=== PATIENT | male | born 1935 | race Caucasian/White ===

== ENCOUNTER 2017-12-26 10:14 | Day surgery (SDC) | payer OTHER ==
[2017-12-26] MEDS ORDERED: LIDOCAINE 1% 2 ML INJ ID PRN (10:38)
[2017-12-26] MEDS ORDERED: LR 1,000 ML IV ONE (10:38)
[2017-12-26] MEDS ORDERED: PROPOFOL/EMULSION 500 MG/50 ML BOTTLE IV ONE (12:06)
--- NOTE | 2017-12-26 12:08 | PDANEPAE ---
ANE History of Present Illness Patient presents for EGD ANE Past Medical History - Cardiovascular History Hx Hypertension: Yes Hx Arrhythmias: No Hx Chest Pain: No Hx Coronary Artery / Peripheral Vascular Disease: No Hx CHF / Valvular Disease: No Hx Palpitations: No Cardiovascular History Comment: CARDIAC STENT 2006. [place] 2014. GABGX3 2014 POST SURG INCISION NOT HEALING AND CODED - Pulmonary History Hx COPD: No Hx Asthma/Reactive Airway Disease: No Hx Recent Upper Respiratory Infection: No Hx Oxygen in Use at Home: No Hx Sleep Apnea: No Sleep Apnea Screening Result - Last Documented: Positive - Neurologic History Hx Cerebrovascular Accident: Yes Hx Seizures: No Hx Dementia: No Neurologic History Comment: 2014 POST SURG STROKE WITH RESIDUAL WEAKNESS ON LT SIDE - Endocrine History Hx Diabetes: Yes Endocrine History Comment: NIDDM. HYPOTHYROID - Renal History Hx Renal Disorders: No - Liver History Hx Hepatic Disorders: No - Neurological & Psychiatric Hx Hx Neurological and Psychiatric Disorders: No - Cancer History Hx Cancer: No - Congenital Disorder History Hx Congenital Disorders: No - GI History Hx Gastrointestinal Disorders: Yes Gastrointestinal History Comment: DIFFICULTY WITH SWALLOWING. WAS SEEN BY [facility] ED AND HAD TO HAVE IT PUSHED OUT 09/2017 - Other Health History Other Health History: RT BELOW LT SHLDR BLADE AREA OF DISCOMFORT. ANEMIA. FULL DENTURES. BRUISES EASILY - Surgical History Prior Surgeries: GABGX3 02/2015. ZENIA STRABISMUS. TONSILLECTOMY. LT KNEE REPAIR. THORACIC FUSION. RT KNEE SCOPE. LT TOTAL HIP. ZENIA CATARACT ANE Review of Systems Review of Systems: - Exercise capacity METS (RN): 3 METS ANE Patient History - Allergies Allergies/Adverse Reactions: codeine Allergy (Verified 12/26/17 11:13) GI Penicillins Allergy (Verified 12/26/17 11:13) MENTAL FUZZINESS - Home Medications Home medications: home medication list seen and reviewed Home Medications: Aspirin DAILY 11/28/17 [Last Taken 12/20/17] Levothyroxine DAILY 11/28/17 [Last Taken 12/20/17] Lisinopril-Hctz 10-12.5 mg Tab DAILY 11/28/17 [Last Taken 12/20/17] Metformin HCl DAILY 11/28/17 [Last Taken 12/20/17] Metoprolol Tartrate DAILY 11/28/17 [Last Taken 12/26/17] Plavix DAILY 11/28/17 [Last Taken 12/20/16] Calcium 12/26/17 [Last Taken 12/20/17] Iron 35 mg 12/26/17 [Last Taken 12/20/17] Oxycodone HCl 12/26/17 [Last Taken 12/20/17] - NPO status NPO Status: no food or drink >8 hours NPO Since - Liquids (Date): 12/26/17 NPO Since - Liquids (Time): 09:00 NPO Since - Solids (Date): 12/25/17 NPO Since - Solids (Time): 18:00 - Smoking Hx Smoking Status: Former smoker ANE Labs/Vital Signs - Vital Signs Blood Pressure: 143/76 Heart Rate: 66 Respiratory Rate: 18 O2 Sat (%): 93 Height: 167.64 cm Weight: 64.864 kg ANE Physical Exam - Airway Neck exam: decreased ROM Mouth exam: dentures - Pulmonary Pulmonary: expiratory wheeze - Cardiovascular Cardiovascular: regular rate and rhythym - ASA Status ASA Status: III ANE Anesthesia Plan Anesthesia Plan: GA with mask (rba discussed)
--- NOTE | 2017-12-26 12:24 | PDGENHP ---
History & Physical Chief Complaint: Dysphagia. Recent foreign body esophageal food impaction History of Present Illness: Dysphagia. Food bolus impaction required EGD for removal Pertinent Past, Social, Family History: CAD. Dysphagia. GERD. No Tobacco. No Etoh. No FH esophageal cancer or GERD. Relevant Physical Exam: NAD. CTA B/L. RRR. Occasional ectopy. AVINASH 05/30. Soft abdomen. NABS. NT/ND Cardiorespiratory Assessment: ASA III. EGD with dilation. MAC planned. Plavix and ASA held for 5 days.
--- NOTE | 2017-12-26 12:43 | GIREPORT ---
[facility] Surgical Services - Endoscopy Department Patient Name: Cong Vidal Procedure Date: 12/26/2017 12:18 PM Patient Type: Outpatient Attending MD/ ER Physician: Cong Canales MD Procedure: Upper GI endoscopy Indications: Dysphagia, Abnormal cine-esophagram Providers: Cong Canales MD Medicines: Propofol per Anesthesia Complications: No immediate complications. Description of Procedure: After obtaining informed consent, the endoscope was passed under direct vision. Throughout the procedure, the patient's blood pressure, pulse, and oxygen saturations were monitored continuously. The Endoscope was intro duced through the mouth, and advanced to the second part of duodenum. The [facility] er GI endoscopy was accomplished without difficulty. The patient tolerated th e procedure well. Findings: One benign-appearing, intrinsic stenosis was found 36 cm from the incis ors. This stenosis was moderately severe and measured 1 cm (inner diameter) x 1 cm (in length). The stenosis was traversed. A TTS dilator was passed th rough the scope. Dilation with a 15-16.5-18 mm x 5.5 cm CRE balloon dilator w as performed to 18 mm. The stomach was normal. The examined duodenum was normal. Estimated Blood Loss: Estimated blood loss was minimal. Post Op Diagnosis: - Benign-appearing esophageal stenosis. Dilated. - Normal stomach. - Normal examined duodenum. - No specimens collected. Recommendation: - Soft diet for 3 days. - Use Protonix (pantoprazole) 40 mg PO daily indefinitely. - Resume aspirin today and Plavix (clopidogrel) tomorrow at prior doses . Refer to referring physician for further adjustment of therapy. - Return to GI office in 3 months. - Patient has a contact number available for emergencies. The signs and symptoms of potential delayed complications were discussed with the pat ient. Return to normal activities tomorrow. Written discharge instructions we re provided to the patient. - Thank you for allowing me to be involved in the care of your patient. Attending Participation: I personally performed the entire procedure without the assistance of a fellow, resident or surg ical veterinarian assistant. Cong Canales MD Cong Canales MD 12/26/2017 12:42:23 PM This report has been signed electronicallyDavid MD Parker Number of Addenda: 0 Note Initiated On: 12/26/2017 12:18 PM [email or web address]
[2017-12-26] MEDS ORDERED: NALOXONE HCL 0.4 MG/ML INJ IVP PRN (12:47)
[2017-12-26] MEDS ORDERED: LR 500 ML IV PRN (12:47)
[2017-12-26] MEDS ORDERED: ONDANSETRON 4 MG/2 ML VIAL IVP PRN (12:47)
--- NOTE | 2017-12-26 12:48 | POSTANESTH ---
Post Anesthetic Evaluation Cardiovascular Status: Similar to Pre-Op Cond Respiratory Status: Similar to Pre-op Cond. Level of Consciousness/Mental Status: Alert and Oriented Pain Control: Adequate, Prn Tx Ordered Nausea/Vomiting Control: Adequate, Prn Tx Ordered Complications Possibly Related to Anesthesia: None Noted
[2017-12-26 13:40] VITALS: BP 141/59
== END 2017-12-26 13:40 | disposition home or self-care (01) ==
LOC: FSGY 10:14
PROVIDERS: ATTEND Internal Medicine Gastroenterology
PROC: 0D718ZZ Dilation of Upper Esophagus, Via Natural or Artificial Opening Endoscopic (ICD-10-PCS; principal; 2017-12-26 09:30)
DX: K22.2 Esophageal obstruction (principal); I25.10 Atherosclerotic heart disease of native coronary artery without angina pectoris; I25.2 Old myocardial infarction; I10 Essential (primary) hypertension; E11.9 Type 2 diabetes mellitus without complications; E78.00 Pure hypercholesterolemia, unspecified; Z95.3 Presence of xenogenic heart valve; Z95.5 Presence of coronary angioplasty implant and graft
CPT/HCPCS: 43249; C1726; J2704